=== PATIENT | male | born 1985 | race Caucasian/White ===

== ENCOUNTER 2017-04-23 09:34 | Emergency (ER) | payer OTHER ==
[2017-04-23 09:38] VITALS: BP 119/73; PULSE 68; RESP 16; TEMP 98.4; O2SAT 98
[2017-04-23] MEDS ORDERED: CLON1TAB PO (09:47)
[2017-04-23] MEDS ORDERED: SUBUTEX PO (09:47)
--- NOTE | 2017-04-23 09:54 | PD ---
HPI Chief Complaint: Skin Problem Time Seen by Provider: 09:46 Travel History International Travel<30 days: No Contact w/Intl Traveler<30days: No Traveled to known affect area: No History of Present Illness HPI Patient is a 31-year-old male who presents to emergency room with complaints of multiple MRSA abscess to his face as well as back. Patient reports that he has history of MRSA, reports that he noticed lesions on his face as well as his back over the past few days, his mother is currently being treated for MRSA as well. Patient reports no fevers or chills, denies any nausea or vomiting. Reports that his tetanus is up-to-date. PFSH Past Medical History Anxiety: Yes Medical other: Yes (CHRONIC PAIN) Ulcer: Yes Past Surgical History Surgical History: No Previous Surgery Social History Alcohol Use: No Tobacco Use: Yes (1 12PPD) Substance Use: Yes (MARIJUANA) Allergies-Medications (Allergen,Severity, Reaction): Coded Allergies: No Known Allergies (Verified Allergy, Unknown, 04/23/17) Reported Meds & Prescriptions Reported Meds & Active Scripts Active Reported [Subutex] 4 Mg PO DAILY Clonazepam 1 Mg Tab 1 Mg PO DAILY Review of Systems General / Constitutional: No: Fever Eyes: No: Visual changes HENT: No: Headaches Cardiovascular: No: Chest Pain or Discomfort Respiratory: No: Shortness of Breath Gastrointestinal: No: Abdominal Pain Genitourinary: No: Dysuria Musculoskeletal: No: Pain Skin: Positive Rash, Positive Other (abscess) Neurologic: No: Weakness Psychiatric: No: Depression Endocrine: No: Polydipsia Hematologic/Lymphatic: No: Easy Bruising Physical Exam Narrative GENERAL: NAD SKIN: Focused skin assessment warm/dry. Patient with multiple abscess to left lower face and back, no drainage, no areas of fluctuance HEAD: Atraumatic. Normocephalic. EYES: Pupils equal and round. No scleral icterus. No injection or drainage. ENT: No nasal bleeding or discharge. Mucous membranes pink and moist. CARDIOVASCULAR: Regular rate and rhythm. No murmur appreciated. RESPIRATORY: No accessory muscle use. Clear to auscultation. Breath sounds equal bilaterally. GASTROINTESTINAL: Abdomen soft, non-tender, nondistended. Hepatic and splenic margins not palpable. MUSCULOSKELETAL: No obvious deformities. No clubbing. No cyanosis. No edema. PSYCHIATRIC: Appropriate mood and affect; insight and judgment normal. Data Data Last Documented VS Vital Signs Date Time Temp Pulse Resp B/P (MAP) Pulse Ox O2 Delivery O2 Flow Rate FiO2 04/23/17 09:38 98.4 68 16 119/73 (88) 98 Room Air Orders Orders Ibuprofen (Motrin) (04/23/17 10:00) Cephalexin (Keflex) (04/23/17 10:00) Sulfamet-Trimeth Ds 800-160 Mg (Bactrim (04/23/17 10:00) MDM Medical Decision Making Medical Screen Exam Complete: Yes Emergency Medical Condition: Yes Medical Record Reviewed: Yes Interpretation(s) Vital Signs Date Time Temp Pulse Resp B/P (MAP) Pulse Ox O2 Delivery O2 Flow Rate FiO2 04/23/17 09:38 98.4 68 16 119/73 (88) 98 Room Air Differential Diagnosis MRSA, Abscess Narrative Course Patients tetanus is up-to-date, plan to treat with Keflex and Bactrim. Patient will follow-up with his primary care doctor and will return to emergency room as needed. Diagnosis Primary Impression: MRSA exposure Additional Impression: Abscess Patient Instructions: General Instructions Additional Instructions: Please take all antibiotics as prescribed Return to ER as needed Please follow up with your primary care doctor in 3-4 days Med/Other Pt SpecificInfo: Prescription(s) given Scripts Mupirocin Topical (Bactroban Topical) 22 Gm Cream 1 APPLIC TOPICAL BID for Mgmt Bacterial Infection, #1 TUBE 0 Refills Prov: Jose ManuelRocio Leonie DO 04/23/17 Ibuprofen (Ibuprofen) 600 Mg Tab 600 MG PO Q6H Y for Pain/Inflammation, #40 TAB 0 Refills Prov: Keisha Richardfer Leonie DO 04/23/17 Cephalexin (Keflex) 500 Mg Cap 500 MG PO Q6H for Infection for 10 Days, #40 CAP 0 Refills Prov: Jose ManuelRocio Leonie DO 04/23/17 Sulfamethoxazole-Trimethoprim (Bactrim DS) 800-160 Mg Tab 1 TAB PO BID for Infection for 10 Days, #20 TAB 0 Refills Prov: Jose ManuelRocio Leonie DO 04/23/17 Disposition: 01 DISCHARGE HOME Condition: Stable Debbie Richardnifer Leonie DO Apr 23, 2017 09:54
[2017-04-23] MEDS ORDERED: BACT800T5 PO (09:58)
[2017-04-23] MEDS ORDERED: CEPH-460 PO (09:58)
[2017-04-23] MEDS ORDERED: IBUP-232 PO (09:59)
[2017-04-23] MEDS ORDERED: MUPI2%T TOPICAL (10:00)
[2017-04-23] MEDS ORDERED: CEPHALEXIN MONOHYDRATE 500 MG CAP PO ONE (10:00)
[2017-04-23] MEDS ORDERED: IBUPROFEN 600 MG TAB PO ONE (10:00)
[2017-04-23] MEDS ORDERED: SULFAMETHOXAZOLE-TRIMETHOPRIM DS 800-160 MG TAB PO ONE (10:00)
== END 2017-04-23 10:09 | disposition home or self-care (01) ==
LOC: PHEFT 09:34
DX: L02.01 Cutaneous abscess of face (principal); L02.212 Cutaneous abscess of back [any part, except buttock and flank]; Z86.14 Personal history of Methicillin resistant Staphylococcus aureus infection
CPT/HCPCS: 99284